=== PATIENT | female | born 1955 | race Caucasian/White ===

== ENCOUNTER → 2016-11-23 | Outpatient (CLI) | payer BC, OTHER ==
[~2016-11-23] MED LIST: FURO-85 PO; LISI-725 PO
--- NOTE | 2016-11-23 12:46 | MAMMOGRAPHY REPORT ---
BILATERAL DIGITAL SCREENING MAMMOGRAM TOMOSYNTHESIS WITH CAD: 11/23/2016 CLINICAL HISTORY: Routine screening. Patient has no complaints. TECHNIQUE: Breast tomosynthesis in addition to standard 2D mammography was performed. Current study was also evaluated with a Computer Aided Detection (CAD) system. COMPARISON: Comparison is made to exams dated: 10/31/2015 mammogram, 10/12/2013 mammogram, 10/13/20 14 mammogram, 10/08/2012 mammogram, 09/26/2011 mammogram, and 09/19/2010 mammogram - [facility]. BREAST COMPOSITION: The tissue of both breasts is almost entirely fatty. FINDINGS: No suspicious masses, calcifications, or areas of architectural distortion are noted in e ither breast. There has been no significant interval change compared to prior exams. Scattered bilat eral benign-appearing calcifications are not significantly changed. IMPRESSION: ACR BI-RADS CATEGORY 2: BENIGN There is no mammographic evidence of malignancy. A 1 year screening mammogram is recommended. The p atient will receive written notification of the results. Approximately 10% of breast cancers are not detected with mammography. A negative mammographic repor t should not delay biopsy if a clinically suggestive mass is present. Porsche Singh M.D. /:11/23/2016 07:42:07 Stock Clipper: Savanna HARDING(Daljit)(M), [facility] letter sent: Normal 1/2 BI-RADS Code: ACR BI-RADS Category 2: Benign
== END | disposition home or self-care (01) ==
LOC: C.MAMM 07:09
PROVIDERS: ATTEND Family Medicine
DX: Z12.31 Encounter for screening mammogram for malignant neoplasm of breast (principal)

== ENCOUNTER → 2017-06-07 | Outpatient (CLI) | payer BC, OTHER ==
--- NOTE | 2017-06-07 17:31 | DIAGNOSTIC IMAGING REPORT ---
LEFT ANKLE MIN 3 VIEWS ROUTINE CLINICAL HISTORY: Left ankle pain swelling COMPARISON: None. DISCUSSION: No acute fractures or dislocations are visualized. The ankle mortise appears intact. There is bimalleolar soft tissue swelling. Soft tissue calcifications within the anterior lower leg are felt to be vascular. IMPRESSION: Bimalleolar soft tissue swelling. No fractures or dislocations identified. Electronically signed by: Nicko Gong M.D. 06/07/2017 5:29 PM Dictated Date/Time: 06/07/2017 5:28 PM
--- NOTE | 2017-06-07 18:13 | DIAGNOSTIC IMAGING REPORT ---
ULTRASOUND VENOUS DOPPLER ULTRASOUND LEFT LOWER EXTREMITY CLINICAL HISTORY: LEFT LEG PAIN AND SWELLING COMPARISON STUDY: No previous studies for comparison. FINDINGS: Real-time and color flow Doppler imaging were performed. Flow was seen within the femoral, popliteal and calf veins with no intraluminal thrombus demonstrated. The saphenous vein is patent. There is a large left popliteal cyst measuring 70 x 34 x 15 mm IMPRESSION: 1. No evidence of left lower extremity DVT 2. Large left popliteal cyst Electronically signed by: Nicko Gong M.D. 06/07/2017 6:11 PM Dictated Date/Time: 06/07/2017 6:10 PM
[2017-06-07 18:16] LABS: BASO ABS # 0.09 K/uL (0-0.2); COMPLETE YES; EOS % 2.8 %; LYMPH % 39.5 %; LYMPH ABS # 1.82 K/uL (1.2-3.4); MEAN CELL VOLUME 82.1 fL (80-100); MEAN CORPUSCULAR HEMOGLOBIN 25.4 pg (25-34); MEAN CORPUSCULAR HGB CONC 30.9 g/dl (32-36); MEAN PLATELET VOLUME 9.5 fL (7.4-10.4); MONO % 12.8 %; NEUT % 42.9 %; PLATELET COUNT 316 K/uL (130-400); RED BLOOD COUNT 4.02 M/uL (4.2-5.4); WHITE BLOOD COUNT 4.61 K/uL (4.8-10.8)
[2017-06-07 18:37] LABS: BLOOD UREA NITROGEN 10 mg/dl (7-18); BUN/CREATININE RATIO 13.5 (10-20); CALCIUM 9.2 mg/dl (8.5-10.1); CARBON DIOXIDE 30 mmol/L (21-32); CHLORIDE 107 mmol/L (98-107); CREATININE 0.74 mg/dl (0.60-1.20); GLUCOSE 125 mg/dl (70-99); SODIUM 140 mmol/L (136-145); URIC ACID 6.8 mg/dl (2.6-7.2)
== END | disposition home or self-care (01) ==
LOC: C.ULTR 17:01
PROVIDERS: ATTEND Family Medicine
DX: M85.5 Aneurysmal bone cyst (principal); M25.473 Effusion, unspecified ankle

== ENCOUNTER → 2017-07-03 | Outpatient (CLI) | payer BC, OTHER ==
--- NOTE | 2017-07-03 09:05 | DIAGNOSTIC IMAGING REPORT ---
AP STANDING VIEW OF BOTH KNEES; 3 VIEWS LEFT KNEE CLINICAL HISTORY: Medial left knee pain. FINDINGS: An AP standing view of both knees with crosstable lateral, tunnel, and sunrise views of the left knee are obtained. No prior studies are available for comparison at the time of dictation. The skeletal structures are osteopenic. No fracture is seen. There is advanced degenerative narrowing in the lateral compartment, with bony sclerosis and subchondral cyst formation as well as osteochondral irregularity. Mild to moderate narrowing is seen in the medial and patellofemoral compartments. There are large lateral marginal osteophytes as well as small patellar enthesophytes. A joint effusion is identified. The overlying soft tissues are within normal limits. A calcified fabella is incidentally noted. Advanced degenerative narrowing is also seen in the lateral compartment of the right knee on the frontal view with large marginal osteophytes. There is lateral subluxation of the right patella. IMPRESSION: 1. Joint effusion with no acute bony abnormality identified in the left knee. 2. Osteopenia and arthritic change as above, greatest in the lateral compartment. 3. Arthritic change is also seen on survey images of the right knee. Electronically signed by: Mark Valdez M.D. 07/03/2017 9:03 AM Dictated Date/Time: 07/03/2017 9:01 AM
== END | disposition home or self-care (01) ==
LOC: C.RDSM 13:18
PROVIDERS: ATTEND Internal Medicine
DX: M25.562 Pain in left knee (principal); M25.462 Effusion, left knee; M85.862 Other specified disorders of bone density and structure, left lower leg

== ENCOUNTER → 2017-07-16 | Outpatient (CLI) | payer BC, OTHER ==
--- NOTE | 2017-07-16 13:20 | DIAGNOSTIC IMAGING REPORT ---
RIGHT SHOULDER MIN 2 VIEWS CLINICAL HISTORY: Right shoulder pain status post injury. COMPARISON: None FINDINGS: Alignment of the right shoulder is anatomic. There is no acute fracture. There is mild to moderate osteoarthritis of the right acromioclavicular joint. IMPRESSION: 1. No acute fracture. 2. 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 Electronically signed by: Emerson Fernández M.D. 07/16/2017 1:19 PM Dictated Date/Time: 07/16/2017 1:18 PM
== END | disposition home or self-care (01) ==
LOC: C.RDSM 13:31
PROVIDERS: ATTEND Physician Assistant
DX: M25.511 Pain in right shoulder (principal)

== ENCOUNTER → 2017-08-07 | Outpatient (CLI) | payer BC, OTHER ==
--- NOTE | 2017-08-07 13:37 | DIAGNOSTIC IMAGING REPORT ---
RIGHT UPPER EXT JOINT WITHOUT CLINICAL HISTORY: RT SHOULDER INSTABILITY Right pain TECHNIQUE: MRI multi axial acquisition COMPARISON STUDY: None FINDINGS: Signal characteristics the osseous structures are unremarkable. There is minimal subchondral bone marrow edema lateral aspect humeral head. Biceps tendon is intact within the bicipital groove. The infraspinatus tendon is unremarkable. The findings of mild tendinopathy of the subscapularis. There is a degree of generalized maceration and tendinopathy of the supraspinatus. There is mild hypertrophic change acromioclavicular joint with mild impingement. There is a partial thickness tear of the superior tendinous surface of the supraspinatus. There is no evidence for musculotendinous retraction. Findings of mild degenerative substance change of the anterior glenoid labrum. No well-defined labral tear is appreciated. IMPRESSION: 1. Supraspinatus tendinopathy with a partial thickness tear at its superior surface. 2. Mild generalized substance change primarily the anterior labrum. 3. Mild subscapularis tendinopathy. 4. Study is otherwise negative. 5. Moderate hypertrophic change acromioclavicular joint creating mild impingement upon the musculotendinous junction of the supraspinatus The above report was generated using voice recognition software. It may contain grammatical, syntax or spelling errors. Electronically signed by: Pablito Dia M.D. 08/07/2017 1:36 PM Dictated Date/Time: 08/07/2017 1:30 PM
== END | disposition home or self-care (01) ==
LOC: C.MRIBC 12:36
PROVIDERS: ATTEND Internal Medicine
DX: M25.311 Other instability, right shoulder (principal); M75.111 Incomplete rotator cuff tear or rupture of right shoulder, not specified as traumatic; M25.811 Other specified joint disorders, right shoulder

== ENCOUNTER → 2017-08-14 | Outpatient (CLI) | payer BC, OTHER | END | disposition home or self-care (01) | LOC: C.RDSM 13:15 | PROVIDERS: ATTEND Orthopaedic Surgery | DX: M25.511 Pain in right shoulder (principal) ==

== ENCOUNTER → 2017-11-26 | Outpatient (CLI) | payer OTHER ==
--- NOTE | 2017-11-26 14:29 | MAMMOGRAPHY REPORT ---
BILATERAL DIGITAL SCREENING MAMMOGRAM TOMOSYNTHESIS WITH CAD: 11/26/2017 CLINICAL HISTORY: Routine screening. Patient has no complaints. TECHNIQUE: Breast tomosynthesis in addition to standard 2D mammography was performed. Current study was also evaluated with a Computer Aided Detection (CAD) system. COMPARISON: Comparison is made to exams dated: 11/23/2016 mammogram, 10/31/2015 mammogram, 10/13/2014 mammogram, 10/12/2013 mammogram, 10/08/2012 mammogram, and 09/26/2011 mammogram - [facility]. BREAST COMPOSITION: The tissue of both breasts is almost entirely fatty. FINDINGS: There are scattered punctate benign microcalcifications in the breasts. No suspicious mas s, architectural distortion or cluster of suspicious microcalcifications is seen. IMPRESSION: ACR BI-RADS CATEGORY 1: NEGATIVE There is no mammographic evidence of malignancy. A 1 year screening mammogram is recommended. The pa tient will receive written notification of the results. Approximately 10% of breast cancers are not detected with mammography. A negative mammographic report should not delay biopsy if a clinically suggestive mass is present. Ana Cruz M.D. ay/:11/26/2017 08:14:47 Coding Analyst: Sheri HARDING(Daljit)(David), [facility] letter sent: Normal 1/2 BI-RADS Code: ACR BI-RADS Category 1: Negative
== END | disposition home or self-care (01) ==
LOC: C.MAMM 07:22
PROVIDERS: ATTEND Family Medicine
DX: Z12.31 Encounter for screening mammogram for malignant neoplasm of breast (principal)

== ENCOUNTER → 2018-02-17 | Outpatient (CLI) | payer OTHER ==
--- NOTE | 2018-02-17 19:56 | DIAGNOSTIC IMAGING REPORT ---
R FOOT MIN 3 VIEWS ROUTINE CLINICAL HISTORY: Right fifth metatarsal pain and swelling. COMPARISON: None FINDINGS: Dorsal right foot soft tissue swelling overlying the midfoot is noted. No acute fracture is identified. Apparent slight subluxation at the level the right fifth metatarsophalangeal joint is likely chronic. No acute fracture is present. There is minimal osteoarthritis within several articulations of the right foot. IMPRESSION: 1. No acute fracture. 2. Apparent slight subluxation at the level of the right fifth metatarsophalangeal joint is likely chronic. 3. Dorsal right midfoot soft tissue swelling. Electronically signed by: Emerson Fernández M.D. 02/17/2018 7:55 PM Dictated Date/Time: 02/17/2018 7:53 PM
== END | disposition home or self-care (01) ==
LOC: C.LAB 19:22
PROVIDERS: ATTEND Student in an Organized Health Care Education/Training Program
DX: M79.671 Pain in right foot (principal); M79.9 Soft tissue disorder, unspecified

== ENCOUNTER → 2018-02-18 | Outpatient (CLI) | payer OTHER ==
--- NOTE | 2018-02-18 15:33 | DIAGNOSTIC IMAGING REPORT ---
RIGHT LOWER EXTREMITY VENOUS DOPPLER CLINICAL HISTORY: Right foot pain and swelling. Elevated d-dimer. COMPARISON STUDY: Right lower extremity venous Doppler October 30, 2013. TECHNIQUE: Sonography of the deep venous system of the right lower extremity was performed. Compression and augmentation were evaluated. FINDINGS: The right common femoral, superficial femoral and popliteal veins were compressible. Augmentation was normal. Flow was shown within the deep calf vessels. IMPRESSION: No evidence of deep venous thrombus within the right lower extremity. Electronically signed by: Emerson Fernández M.D. 02/18/2018 3:32 PM Dictated Date/Time: 02/18/2018 3:32 PM
== END | disposition home or self-care (01) ==
LOC: C.ULTRBC 14:41
PROVIDERS: ATTEND Student in an Organized Health Care Education/Training Program
DX: M79.671 Pain in right foot (principal)